=== PATIENT | male | born 1960 | race Caucasian/White ===

== ENCOUNTER 2021-06-29 23:31 | Emergency (ER) | payer OTHER ==
[2021-06-30] MEDS ORDERED: Morphine 10 MG/ML VIAL ONE (00:15)
[2021-06-30] MEDS ORDERED: Morphine 4 MG/ML VIAL ONE (01:05)
[2021-06-30] MEDS ORDERED: Cyclobenzaprine 10 MG TAB ONE (01:46)
== END 2021-06-30 01:44 | disposition home or self-care (01) ==
LOC: BURERS 23:31
DX: M54.50 Low back pain, unspecified (principal); Z79.899 Other long term (current) drug therapy; Z79.82 Long term (current) use of aspirin; E78.5 Hyperlipidemia, unspecified; E78.00 Pure hypercholesterolemia, unspecified; I10 Essential (primary) hypertension; Z87.891 Personal history of nicotine dependence
CPT/HCPCS: 96372; 99283; J2270